=== PATIENT | female | born 1985 | race Caucasian/White ===

== ENCOUNTER → 2021-04-01 07:55 | Outpatient (CLI) | payer OTHER, MEDICAID, SELFPAY ==
[2021-04-01 20:45] LABS: COVID19 - ORCAS (NP or Nasal) Negative (Negative)
== END ==
PROVIDERS: Visit Provider Physician Assistant
DX: Z20.822 Contact with and (suspected) exposure to COVID-19 (principal)
CPT/HCPCS: C9803; U0003

== ENCOUNTER → 2022-04-20 14:13 | Outpatient (CLI) | payer OTHER, MEDICAID, SELFPAY | PROVIDERS: PCP Physician Assistant; Visit Provider Physician Assistant | DX: R35.0 Frequency of micturition (principal); R39.15 Urgency of urination | CPT/HCPCS: 81002; 81025; 87086 ==

== ENCOUNTER 2022-08-01 02:12 | Emergency (ER) | payer OTHER, MEDICAID, SELFPAY ==
[2022-08-01] VITALS (10 sets, daily range): BP systolic 113–126; BP diastolic 67–85; PULSE 94–122; TEMP 36.9; O2SAT 96–100
--- NOTE | 2022-08-01 03:06 | ED_ITS ---
HPI - Headache General Chief Complaint: Headache Stated Complaint: Headache/body aches/18 weeks Time Seen by Provider: 08/01/22 02:23 Mode of arrival: Ambulatory History of Present Illness HPI Narrative: 37-year-old female former smoker without chronic medical history is a at 18 weeks and presents with headache, body aches, fatigue and fever for the past few days. She states that she started getting ill over the course of the weekend and had symptoms that were very nonspecific but knew that she was beginning to fight something. She is had increasing levels of fatigue and joint pain and has developed a generalized headache over the past few days. She admittedly has had a poor appetite and has not been eating and drinking as much. She denies any neck pain. She states that when her headache becomes significantly intense she does get some blurring of vision but this is not persistent. She denies any double vision, facial numbness, tingling, weakness. As stated she has no neck pain. She is no chest pain, shortness of breath or cough. She denies any abdominal pain and has had no vaginal bleeding, discharge or leakage of fluid. She was seen and evaluated at an outside facility yesterday and had a negative respiratory swab, reassuring lab work and was given IV fluids and diagnosed with mild dehydration and viral syndrome. She denies dysuria but states she has had frequency and urgency which maybe a bit worse than normal but states that she has frequent urination for the majority of her Related Data Previous Rx's Medication Instructions Recorded cefpodoxime 200 mg tablet 200 mg PO BID 10 days #20 tabs 08/01/22 metoclopramide HCl 10 mg tablet 10 mg PO Q6H PRN nausea and 08/01/22 vomiting #20 tabs Allergies Allergy/AdvReac Type Severity Reaction Status Date / Time No Known Drug Allergies Allergy Verified 05/14/22 15:10 Review of Systems Review of Systems Narrative: GENERAL: Denies chills, fatigue, malaise, fever, sweats. HEENT: Denies sinus pain, ear pain, sore throat, difficulty swallowing, dizziness. RESPIRATORY: Denies dyspnea, cough, wheezing, hemoptysis, sputum. CARDIOVASCULAR: Denies chest pain, palpitations, orthopnea, edema, GASTROINTESTINAL: Denies nausea, vomiting, abdominal pain, diarrhea, constipation, melena. : Denies dysuria, frequency, incontinence, hematuria, urinary retention. MUSCULOSKELETAL: denies weakness, joint pain, or bony pain SKIN: Denies rash, skin lesions, or other NEUROLOGIC: Denies weakness, headache, numbness, change in speech, confusion, seizures, incoordination. PSYCHIATRIC: No concerning psychosocial issues. 12 point review of systems is negative except for those stated above Patient History Social History Smoking Status: Former smoker Smoking Status: Former smoker alcohol intake frequency: 0-2 drinks per day Exam Narrative Exam Narrative: GENERAL: [37] year old patient appears stated age. Well-developed patient, in mild distress. Sitting in a dark room HEAD: Atraumatic. Normocephalic. EYES: Pupils equal round and reactive. Extraocular motions intact. No scleral icterus. No injection or drainage. ENT: Nose without bleeding, purulent drainage. Throat without erythema, tonsillar hypertrophy or exudate. Airway patent. NECK: Trachea midline. Non tender, no meningeal signs, negative Brudzinski's, negative Kernig's CARDIOVASCULAR: Tachycardic and regular rhythm without murmurs, gallops, or rubs. RESPIRATORY: Clear to auscultation. Breath sounds equal bilaterally. No wheezes, rales, or rhonchi. GASTROINTESTINAL: Abdomen nontender, gravid EXTREMITIES: No edema or joint tenderness. BACK: Nontender without deformity or crepitance. No flank tenderness. NEURO: AOx3. SKIN: No rash or erythema of visible areas Initial Vital Signs Initial Vital Signs: Vital Signs Pulse Rate 119 H 08/01/22 02:34 Pulse Oximetry 98 08/01/22 02:34 Course Orders Ordered: Discontinued Medications Sodium Chloride (Normal Saline 0.9%) 1,000 mls @ 1,000 mls/hr IV BOLUS ONE Stop: 08/01/22 03:48 Last Infusion: 08/01/22 05:00 Dose: 0 mls/hr Documented By: Admin: 08/01/22 03:35 Dose: 1,000 mls/hr Documented By: ASHLEIGH Acetaminophen (Ofirmev) 1,000 mg in 100 mls @ 400 mls/hr IV NOW ONE Stop: 08/01/22 03:32 Last Infusion: 08/01/22 04:11 Dose: 0 mls/hr Documented By: Admin: 08/01/22 03:37 Dose: 400 mls/hr Documented By: ASHLEIGH Ceftriaxone Sodium 2,000 mg/ (Sodium Chloride) 100 mls @ 200 mls/hr IV NOW ONE Stop: 08/01/22 05:00 Last Infusion: 08/01/22 06:25 Dose: 0 mls/hr Documented By: Admin: 08/01/22 05:55 Dose: 200 mls/hr Documented By: ASHLEIGH Lactated Ringer's (Lactated Ringers) 1,000 mls @ 1,000 mls/hr IV BOLUS ONE Stop: 08/01/22 05:58 Last Infusion: 08/01/22 05:55 Dose: 0 mls/hr Documented By: Admin: 08/01/22 05:00 Dose: 1,000 mls/hr Documented By: ASHLEIGH Metoclopramide HCl (Metoclopramide 10 Mg/2 Ml Inj) 10 mg IV NOW ONE Stop: 08/01/22 03:54 Last Admin: 08/01/22 04:18 Dose: 10 mg Documented By: ASHLEIGH Reevaluation(s) Reevaluation #1: Patient feeling much better after 1st bag of fluids, heart rate from the 120s down to the low 100s, 2nd bag hung along with antibiotics MDM - Headache Lab Data 08/01/22 02:50 08/01/22 02:50 Labs: Lab Results 08/01/22 08/01/22 08/01/22 Range/Units 02:50 02:50 02:50 WBC 4.3 L (4.5-11.0) X10^3/uL RBC 3.75 L (4.0-5.2) X10^6/uL Hgb 11.7 L (12.0-16.0) g/dL Hct 33.6 L (36-46) % MCV 89.7 (80-100) fL MCH 31.1 (26-34) PG MCHC 34.7 (30-36) % RDW 12.7 (11.6-14.8) % Plt Count 132 L (150-400) X10^3/uL Neut % (Auto) 78.0 H (50-75) % Lymph % (Auto) 18.2 L (25-40) % [place] % (Auto) 3.2 (3-14) % Eos % (Auto) 0.0 L (2-4) % Baso % (Auto) 0.6 (0-2) % Neut # (Auto) 3300 (5310-4915) /uL Lymph # (Auto) 800 L (9252-0678) /uL [place] # (Auto) 100 (0-900) /uL Eos # (Auto) 0 (0-450) /uL Baso # (Auto) 0 (0-100) /uL Sodium 130 L (137-145) mmol/L Potassium 3.5 (3.4-5.1) mmol/L Chloride 101 (98-107) mmol/L Carbon Dioxide 21 L (22-32) mmol/L BUN 3 L (7-17) mg/dL Creatinine 0.42 L (0.52-1.04) mg/dL Estimated GFR > 60 (>60) mL/min BUN/Creatinine Ratio 7.1 (6-22) Glucose 102 H (70-100) mg/dL Uric Acid 3.2 (2.5-6.2) mg/dL Calcium 8.4 (8.4-10.2) mg/dL Total Bilirubin 1.1 (0.2-1.3) mg/dL AST 61 H (14-36) IU/L ALT 45 H (<35) IU/L Alkaline Phosphatase 114 (38-126) U/L Lactate Dehydrogenase 336 H (120-246) U/L Total Protein 6.9 (6.3-8.2) g/dL Albumin 3.7 (3.5-5.0) g/dL Globulin 3.2 (1.7-4.1) g/dL Albumin/Globulin Ratio 1.2 (1.0-2.8) Urine RBC (0-5/HPF) Urine WBC (0-5/HPF) Ur Squamous Epith Cells (0-5/HPF) Urine Bacteria (None) SARS-CoV-2 (PCR) (Negative) Influenza A (RT-PCR) (NEGATIVE) Influenza B (RT-PCR) (NEGATIVE) RSV (PCR) (Negative) 08/01/22 08/01/22 Range/Units 03:19 04:56 WBC (4.5-11.0) X10^3/uL RBC (4.0-5.2) X10^6/uL Hgb (12.0-16.0) g/dL Hct (36-46) % MCV (80-100) fL MCH (26-34) PG MCHC (30-36) % RDW (11.6-14.8) % Plt Count (150-400) X10^3/uL Neut % (Auto) (50-75) % Lymph % (Auto) (25-40) % [place] % (Auto) (3-14) % Eos % (Auto) (2-4) % Baso % (Auto) (0-2) % Neut # (Auto) (2364-6326) /uL Lymph # (Auto) (9432-5972) /uL [place] # (Auto) (0-900) /uL Eos # (Auto) (0-450) /uL Baso # (Auto) (0-100) /uL Sodium (137-145) mmol/L Potassium (3.4-5.1) mmol/L Chloride (98-107) mmol/L Carbon Dioxide (22-32) mmol/L BUN (7-17) mg/dL Creatinine (0.52-1.04) mg/dL Estimated GFR (>60) mL/min BUN/Creatinine Ratio (6-22) Glucose (70-100) mg/dL Uric Acid (2.5-6.2) mg/dL Calcium (8.4-10.2) mg/dL Total Bilirubin (0.2-1.3) mg/dL AST (14-36) IU/L ALT (<35) IU/L Alkaline Phosphatase (38-126) U/L Lactate Dehydrogenase (120-246) U/L Total Protein (6.3-8.2) g/dL Albumin (3.5-5.0) g/dL Globulin (1.7-4.1) g/dL Albumin/Globulin Ratio (1.0-2.8) Urine RBC 0-1/hpf (0-5/HPF) Urine WBC 5-10/hpf H (0-5/HPF) Ur Squamous Epith Cells 1-5 /hpf (0-5/HPF) Urine Bacteria Moderate (10-30) H (None) SARS-CoV-2 (PCR) Negative (Negative) Influenza A (RT-PCR) Flu a negative (NEGATIVE) Influenza B (RT-PCR) Flu b negative (NEGATIVE) RSV (PCR) Negative (Negative) Urine Dip Bedside Urine Glucose Negative Bedside Urine Bilirubin - Negative Bedside Urine Ketone +++ 80 Urine Specific [place] 1.015 Bedside Urine Occult Blood - Negative Bedside Urine pH 6.0 Bedside Urine Protein +/- 15 Bedside Urine Urobilinogen 1+ 2mg Bedside Urine Nitrite - Negative Bedside Urine Leukocytes + 70 Esterase MDM Narrative Medical decision making narrative: CC: 37-year-old female with fever, body aches, myalgias, headache Complicating co-morbidities: Data collected from: Patient Medical records reviewed: Prior notes reviewed in our EMR Differential considered, but not limited to: Viral syndrome, UTI/pyelonephritis, versus meningitis versus preeclampsia versus other Exam documented above, pertinent findings include: Intact neurologic exam, no meningeal signs, initially tachycardic but improved, no labored breathing, abdomen nontender Lab Test results independently reviewed as above. Pertinent findings: No significant leukocytosis, relative left shift, no significant electrolyte abnormality or renal function abnormality, LFTs slightly elevated at 61 and 45 respectively Imaging studies independently reviewed: Bedside point of care ultrasound demonstrates motion, heart tones within normal range Treatments: Fluids, antibiotics, Tylenol, Reglan Consultation: Discussed with local OB, ([facility]). Dicussed slight elevated LFTs and subtle drop in platelets, no indication to pursue HELPP per OB. Re-evaluations: Significant improvement, patient ambulatory in the department, headache significantly improved, heart rate down to the 90s Discussion: Multiple diagnoses considered as noted above, patient has had significant improvement with above-stated therapies. Urine with WBCs and leuk esterase along with frequency and urgency consistent with UTI, low back pain also suggestive upper. Respiratory panel unremarkable for flu and COVID. Labs otherwise largely unremarkable. Patient with significant improvement, no meningeal signs. Disposition: see below, along with detailed discharge instructions that have been reviewed with patient as well as indications for ED re-evaluation and additional outpatient follow up Discharge Plan Departure Patient Disposition: Home Clinical Impression: Pyelonephritis Instructions: DI for Urinary Tract Infection (UTI) Activity Restrictions/Additional Instructions: *You have been diagnosed with [pyelonephritis. As we discussed your history and physical exam are reassuring, labs are suggestive of urinary tract infection and given fever, nausea and back pain would suggest an upper tract infection called pyelonephritis. There is no indication to pursue meningitis as a diagnosis, respiratory swabs for flu and COVID are negative.] *What to do: *Please continue to take your regular medications as directed. [ x] New medication prescriptions sent to your pharmacy: [[facility] ] [ ] New medication written as a paper prescription [ ] No new medications given *Please follow up with your primary care provider in 2-3 days, call for an appointment. Let them know you were seen in the Emergency Department and that we ask that you be seen in follow up. We will electronically transmit a record of today's note if your PCP is in our system *If you do not have a primary care provider please contact the [facility] Resource line at [phone]. They will ask some questions about your medical history and help get you set up with a doctor in the community. *Return to Emergency Department if you should have any new, worsening or concerning symptoms, such as [fever greater than 101 F, shaking chills, worsening pain, persistent vomiting or other bothersome symptoms] Prescriptions: New cefpodoxime 200 mg tablet 200 mg PO BID 10 Days Qty: 20 0RF Rx Instructions: must administer with a meal/food metoclopramide HCl 10 mg tablet 10 mg PO Q6H PRN (Reason: nausea and vomiting) Qty: 20 0RF Referrals: Ana Medellin PA-C [Primary Care Provider] - Stand Alone Forms: Patient Portal/API
[2022-08-01 03:09] LABS: Add Manual Diff / Slide Review NO; Basophils Absolute Auto 0 /uL (0-100); Basophils Percent Auto 0.6 % (0-2); Eosinophils Absolute Auto 0 /uL (0-450); Hematocrit 33.6 % (36-46); Hemoglobin 11.7 g/dL (12.0-16.0); Lymphocytes Absolute Auto 800 /uL (1100-4500); Lymphocytes Percent Auto 18.2 % (25-40); Mean Corpuscular HGB Conc 34.7 % (30-36); Mean Corpuscular Hemoglobin 31.1 PG (26-34); Mean Corpuscular Volume 89.7 fL (80-100); Monocytes Absolute Auto 100 /uL (0-900); Monocytes Percent Auto 3.2 % (3-14); Neutrophils Absolute Auto 3300 /uL (1500-7000); Platelet Count 132 X10^3/uL (150-400); Red Blood Cell Count 3.75 X10^6/uL (4.0-5.2); Red Cell Distribution Width 12.7 % (11.6-14.8); White Blood Cell Count 4.3 X10^3/uL (4.5-11.0)
[2022-08-01 03:21] LABS: Alanine Aminotransferase 45 IU/L (<35); Albumin 3.7 g/dL (3.5-5.0); Albumin Globulin Ratio 1.2 (1.0-2.8); Alkaline Phosphatase 114 U/L (38-126); Aspartate Aminotransferase 61 IU/L (14-36); BUN Creatinine Ratio 7.1 (6-22); Bilirubin Total 1.1 mg/dL (0.2-1.3); Blood Urea Nitrogen 3 mg/dL (7-17); Calcium 8.4 mg/dL (8.4-10.2); Carbon Dioxide 21 mmol/L (22-32); Chloride 101 mmol/L (98-107); Estimated Glomerular Filt Rate > 60 mL/min (>60); Globulin 3.2 g/dL (1.7-4.1); Glucose 102 mg/dL (70-100); HEMOLYSIS < 15 (0-50); Potassium 3.5 mmol/L (3.4-5.1); Sodium 130 mmol/L (137-145); Total Protein 6.9 g/dL (6.3-8.2)
[2022-08-01] MEDS: SODIUM CHLORIDE 0.9% 1,000 ML 1000 ML IV (03:35)
[2022-08-01] MEDS: ACETAMINOPHEN IV 1,000 MG/100 ML VIAL 400 MG IV (03:37)
[2022-08-01 04:12] LABS: Influenza A - CEPHEID Flu A NEGATIVE (NEGATIVE); Influenza B - CEPHEID Flu B NEGATIVE (NEGATIVE); Respiratory Syncytial Virus Negative (Negative)
[2022-08-01] MEDS: METOCLOPRAMIDE 10 MG/2 ML INJ IV (04:18)
[2022-08-01 04:23] LABS: COVID-19 CEPHEID 4-PLEX PCR Negative (Negative)
[2022-08-01] MEDS: LACTATED RINGERS 1,000 ML 1000 ML IV (05:00)
[2022-08-01 05:04] LABS: WBC Urine 5-10/HPF (0-5/HPF)
[2022-08-01 05:05] LABS: Bacteria Urine Moderate (10-30); RBC Urine 0-1/HPF (0-5/HPF); Squamous Epithelial Cell Urine 1-5 /HPF (0-5/HPF)
[2022-08-01] MEDS: cefTRIAXone 2,000 MG in SODIUM CHLORIDE 0.9% 100 ML 200 MG IV (05:55)
[2022-08-01 05:59] LABS: Lactate Dehydrogenase 336 U/L (120-246); Uric Acid 3.2 mg/dL (2.5-6.2)
== END 2022-08-01 07:00 | disposition home or self-care (01) ==
PROVIDERS: Emergency Provider Emergency Medicine; PCP Physician Assistant
DX: N12 Tubulo-interstitial nephritis, not specified as acute or chronic (principal); Z20.822 Contact with and (suspected) exposure to COVID-19; Z3A.18 18 weeks gestation of pregnancy
CPT/HCPCS: 0241U; 36415; 80053; 81003; 81015; 83615; 84550; 85025; 87040; 87086; 93005; 93010; 96361; 96365; 96367; 96375; 99284; J0131; J0696; J2765

== ENCOUNTER → 2022-08-18 11:50 | Outpatient (CLI) | payer OTHER, MEDICAID, SELFPAY | PROVIDERS: PCP Physician Assistant; Visit Provider Physician Assistant | DX: Z87.440 Personal history of urinary (tract) infections (principal) | CPT/HCPCS: 81002; 87086 ==

== ENCOUNTER → 2024-07-09 11:25 | Outpatient (CLI) | payer OTHER, SELFPAY | PROVIDERS: PCP Physician Assistant; Visit Provider Physician Assistant | DX: Z87.440 Personal history of urinary (tract) infections (principal) | CPT/HCPCS: 87077; 87086; 87186 ==

== ENCOUNTER 2025-03-25 23:37 | Emergency (ER) | payer OTHER, SELFPAY ==
--- NOTE | 2025-03-25 23:39 | ED.GENADULT ---
HPI - General Adult <Melanie Conner DO - Last Filed: 03/27/25 07:16> General Chief complaint: Psychiatric Symptoms Stated complaint: Alcohol withdraw Time Seen by Provider: 03/25/25 23:39 Source: patient, EMS, RN notes reviewed and old records reviewed Mode of arrival: EMS Limitations: no limitations History of Present Illness HPI narrative: 39-year-old female history of depression currently on sertraline who presents with complaint of alcohol intoxication and depression. Patient states she does have suicidal ideation but no plan or intent to act on it but frequently has these thoughts. She denies any homicidal ideation. She notes stressors including having 3 children under the age of 5[place]. He is currently taking sertraline but is currently taking an prescription left over from her mother as [facility] where she was receiving her medications closed and she has not had access. She does have a primary care but she has followed. Tonight she had about 1.5 L of wine, she notes she also had quite a bit of wine on Tuesday. She states she typically drinks through Tuesday a bottle of wine on the weekends but does not drink the rest of the week. She denies tobacco, denies any marijuana or recreational drugs. She lives on [facility]. Related Data Previous Rx's ?Medication ?Instructions ?Recorded metoclopramide HCl 10 mg tablet 10 mg PO Q6H PRN nausea and 08/01/22 vomiting #20 tabs Allergies Allergy/AdvReac Type Severity Reaction Status Date / Time No Known Drug Allergies Allergy Verified 03/26/25 00:33 Review of Systems <Melanie Conner DO - Last Filed: 03/27/25 07:16> Review of Systems ROS Unobtainable: All systems reviewed & are unremarkable except as noted in HPI and below Patient History <Melanie Conner DO - Last Filed: 03/27/25 07:16> Social History Smoking Status: Current some day smoker alcohol intake frequency: 0-2 drinks per day Exam <Melanie Conner DO - Last Filed: 03/27/25 07:16> Narrative Exam Narrative: GENERAL: Alert and oriented x three, female in mild distress, patient is tearful, cooperative HEENT: Head normocephalic, atraumatic, EOMI, pupils reactive, face symmetric, moist mucous membranes NECK: Supple, full range of motion CARDIOVASCULAR: Regular rate and rhythm without murmurs, rubs or gallops. RESPIRATORY: Breath sounds equal bilaterally, no wheezes rales or rhonchi. ABDOMEN: Soft, nontender. Normoactive bowel sounds all 4 quadrants. No guarding or rebound, rigidity, no mass : No CVA tenderness EXTREMITIES: Normal range of motion, no clubbing or edema. Neurovascularly intact NEUROLOGICAL: Cranial nerves II through XII grossly intact. Moving all extremities SKIN: Warm, dry, no petechiae, no rashes or lesions. PSYCH: Depression, suicidal ideation denies intent, no homicidal ideation, no hallucinations, no paranoia Initial Vital Signs Initial Vital Signs: Vital Signs Pulse Rate 89 03/25/25 23:48 Pulse Oximetry 99 03/25/25 23:48 <Nimesh Vo MD - Last Filed: 03/26/25 12:17> Initial Vital Signs Initial Vital Signs: Vital Signs Pulse Rate 89 03/25/25 23:48 Pulse Oximetry 99 03/25/25 23:48 Course <Melanie Conner DO - Last Filed: 03/27/25 07:16> Orders Ordered: Discontinued Medications Phenobarbital (Phenobarbital 65 Mg/Ml Vial) 130 mg IV NOW ONE Stop: 03/26/25 04:24 Last Admin: 03/26/25 04:31 Dose: 130 mg Documented By: LS Vital Signs Vital signs: Vital Signs - 8 hr 03/26/25 04:30 03/26/25 04:30 03/26/25 04:44 Temperature Pulse Rate 77 Respiratory Rate Blood Pressure 137/100 H 139/102 H Pulse Oximetry 98 Oxygen Delivery Method 03/26/25 04:44 03/26/25 05:00 03/26/25 05:00 Temperature Pulse Rate 67 63 Respiratory Rate Blood Pressure 140/92 H Pulse Oximetry 97 97 Oxygen Delivery Method Room Air 03/26/25 09:59 Temperature 98.6 F Pulse Rate 65 Respiratory Rate 16 Blood Pressure 142/81 H Pulse Oximetry 95 Oxygen Delivery Method Room Air <Nimesh Vo MD - Last Filed: 03/26/25 12:17> Orders Ordered: Discontinued Medications Phenobarbital (Phenobarbital 65 Mg/Ml Vial) 130 mg IV NOW ONE Stop: 03/26/25 04:24 Last Admin: 03/26/25 04:31 Dose: 130 mg Documented By: ELIO Reevaluation(s) Reevaluation #1: Patient has been seen by social work and voluntary psychiatric admission was arranged. Patient will be transferred to [facility], accepting provider is Jagdeep Vital Signs Vital signs: Vital Signs - 8 hr 03/26/25 04:30 03/26/25 04:30 03/26/25 04:44 Temperature Pulse Rate 77 Respiratory Rate Blood Pressure 137/100 H 139/102 H Pulse Oximetry 98 Oxygen Delivery Method 03/26/25 04:44 03/26/25 05:00 03/26/25 05:00 Temperature Pulse Rate 67 63 Respiratory Rate Blood Pressure 140/92 H Pulse Oximetry 97 97 Oxygen Delivery Method Room Air 03/26/25 09:59 Temperature 98.6 F Pulse Rate 65 Respiratory Rate 16 Blood Pressure 142/81 H Pulse Oximetry 95 Oxygen Delivery Method Room Air Medical Decision Making <Melanie Conner, - Last Filed: 03/27/25 07:16> Lab Data 03/26/25 00:15 03/26/25 00:15 Labs: Lab Results 03/26/25 03/26/25 Range/Units 00:15 01:36 WBC 6.8 (4.5-11.0) X10^3/uL RBC 3.93 L (4.0-5.2) X10^6/uL Hgb 12.5 (12.0-16.0) g/dL Hct 36.8 (36-46) % MCV 93.5 (80-100) fL MCH 31.9 (26-34) PG MCHC 34.1 (30-36) % RDW 13.8 (11.6-14.8) % Plt Count 311 (150-400) X10^3/uL Neut % (Auto) 87.0 H (50-75) % Lymph % (Auto) 11.3 L (25-40) % [place] % (Auto) 1.1 L (3-14) % Eos % (Auto) 0.1 L (2-4) % Baso % (Auto) 0.5 (0-2) % Neut # (Auto) 5900 (7048-4166) /uL Lymph # (Auto) 800 L (4113-4066) /uL [place] # (Auto) 100 (0-900) /uL Eos # (Auto) 0 (0-450) /uL Baso # (Auto) 0 (0-100) /uL Sodium 143 (137-145) mmol/L Potassium 3.9 (3.4-5.1) mmol/L Chloride 106 (98-107) mmol/L Carbon Dioxide 26 (22-32) mmol/L BUN 16 (7-17) mg/dL Creatinine 0.56 (0.52-1.04) mg/dL Estimated GFR > 60 (>60) mL/min BUN/Creatinine Ratio 28.6 H (6-22) Glucose 118 H (70-99) mg/dL Calcium 8.8 (8.4-10.2) mg/dL Total Bilirubin 0.3 (0.2-1.3) mg/dL AST 23 (14-36) IU/L ALT 11 (<35) IU/L Alkaline Phosphatase 48 (38-126) U/L Total Protein 7.5 (6.3-8.2) g/dL Albumin 4.6 (3.5-5.0) g/dL Globulin 2.9 (1.7-4.1) g/dL Albumin/Globulin Ratio 1.6 (1.0-2.8) Lipase 58 (23-300) U/L TSH 0.20 L (0.47-4.68) uIU/mL Free T4 1.09 (0.78-2.19) ng/dL Salicylates < 1.0 (<20) mg/dL U Opiates 300ng/mL cut Negative (Negative) Ur Oxycodone Screen Negative (Negative) Urine Methadone Screen Negative (Negative) Acetaminophen < 10 (10-30) ug/mL Ur Barbiturates Screen Negative (Negative) U Tricyclic Antidepress Negative (Negative) Ur Phencyclidine Scrn Negative (Negative) Ur Amphetamines Screen Negative (Negative) U Methamphetamines Scrn Negative (Negative) Ur MDMA Scrn (Ecstasy) Negative (Negative) U Benzodiazepines Scrn Negative (Negative) Urine Cocaine Screen Negative (Negative) U Marijuana (THC) Screen Negative (Negative) Urine pH Normal (Normal) Urine Specific [place] Normal (Normal) Ethyl Alcohol 123 H (<10) mg/dL Ur Creatinine Normal (Normal) Point of Care Testing Test Results Negative Urine Dip Bedside Urine Glucose Negative Bedside Urine Bilirubin - Negative Bedside Urine Ketone - Negative Urine Specific [place] 1.015 Bedside Urine Occult Blood - Negative Bedside Urine pH 7.5 Bedside Urine Protein - Negative Bedside Urine Urobilinogen - Negative Bedside Urine Nitrite - Negative Bedside Urine Leukocytes - Negative Esterase Point of care testing: Point of Care Testing Test Results Negative Urine Dip Bedside Urine Glucose Negative Bedside Urine Bilirubin - Negative Bedside Urine Ketone - Negative Urine Specific [place] 1.015 Bedside Urine Occult Blood - Negative Bedside Urine pH 7.5 Bedside Urine Protein - Negative Bedside Urine Urobilinogen - Negative Bedside Urine Nitrite - Negative Bedside Urine Leukocytes - Negative Esterase MDM Narrative Medical decision making narrative: 39-year-old female presents with a complaint of depression and recent alcohol ingestion. Patient has suicidal ideation but denies any intent. She notes she maybe interested in inpatient psychiatric placement but is currently not sure. Labs show white count of 6.8 hemoglobin of 12.5 platelets of 311, chemistries are appropriate glucose is 118 LFTs are normal TSH is 0.02 with a free T4 of 1.09, acetaminophen and salicylate are negative, ETOH is 123. UDS is negative. Point of care urine is negative. Urine preg is negative. Patient had dose of phenobarb Patient has a medically cleared. Plan for [employer] in the morning. 0223 spoke with the patient she is interested in meeting with the [employer] this morning. 0426: Patient notes she is feeling very anxious, she feels like she is having little bit of alcohol withdrawal she does note she gets jittery during the week when she does not drink. Will give a dose of phenobarbital. <Nimesh Vo MD - Last Filed: 03/26/25 12:17> Lab Data Labs: Lab Results 03/26/25 03/26/25 Range/Units 00:15 01:36 WBC 6.8 (4.5-11.0) X10^3/uL RBC 3.93 L (4.0-5.2) X10^6/uL Hgb 12.5 (12.0-16.0) g/dL Hct 36.8 (36-46) % MCV 93.5 (80-100) fL MCH 31.9 (26-34) PG MCHC 34.1 (30-36) % RDW 13.8 (11.6-14.8) % Plt Count 311 (150-400) X10^3/uL Neut % (Auto) 87.0 H (50-75) % Lymph % (Auto) 11.3 L (25-40) % [place] % (Auto) 1.1 L (3-14) % Eos % (Auto) 0.1 L (2-4) % Baso % (Auto) 0.5 (0-2) % Neut # (Auto) 5900 (6627-4352) /uL Lymph # (Auto) 800 L (2247-8736) /uL [place] # (Auto) 100 (0-900) /uL Eos # (Auto) 0 (0-450) /uL Baso # (Auto) 0 (0-100) /uL Sodium 143 (137-145) mmol/L Potassium 3.9 (3.4-5.1) mmol/L Chloride 106 (98-107) mmol/L Carbon Dioxide 26 (22-32) mmol/L BUN 16 (7-17) mg/dL Creatinine 0.56 (0.52-1.04) mg/dL Estimated GFR > 60 (>60) mL/min BUN/Creatinine Ratio 28.6 H (6-22) Glucose 118 H (70-99) mg/dL Calcium 8.8 (8.4-10.2) mg/dL Total Bilirubin 0.3 (0.2-1.3) mg/dL AST 23 (14-36) IU/L ALT 11 (<35) IU/L Alkaline Phosphatase 48 (38-126) U/L Total Protein 7.5 (6.3-8.2) g/dL Albumin 4.6 (3.5-5.0) g/dL Globulin 2.9 (1.7-4.1) g/dL Albumin/Globulin Ratio 1.6 (1.0-2.8) Lipase 58 (23-300) U/L TSH 0.20 L (0.47-4.68) uIU/mL Free T4 1.09 (0.78-2.19) ng/dL Salicylates < 1.0 (<20) mg/dL U Opiates 300ng/mL cut Negative (Negative) Ur Oxycodone Screen Negative (Negative) Urine Methadone Screen Negative (Negative) Acetaminophen < 10 (10-30) ug/mL Ur Barbiturates Screen Negative (Negative) U Tricyclic Antidepress Negative (Negative) Ur Phencyclidine Scrn Negative (Negative) Ur Amphetamines Screen Negative (Negative) U Methamphetamines Scrn Negative (Negative) Ur MDMA Scrn (Ecstasy) Negative (Negative) U Benzodiazepines Scrn Negative (Negative) Urine Cocaine Screen Negative (Negative) U Marijuana (THC) Screen Negative (Negative) Urine pH Normal (Normal) Urine Specific [place] Normal (Normal) Ethyl Alcohol 123 H (<10) mg/dL Ur Creatinine Normal (Normal) Point of Care Testing Test Results Negative Urine Dip Bedside Urine Glucose Negative Bedside Urine Bilirubin - Negative Bedside Urine Ketone - Negative Urine Specific [place] 1.015 Bedside Urine Occult Blood - Negative Bedside Urine pH 7.5 Bedside Urine Protein - Negative Bedside Urine Urobilinogen - Negative Bedside Urine Nitrite - Negative Bedside Urine Leukocytes - Negative Esterase Point of care testing: Point of Care Testing Test Results Negative Urine Dip Bedside Urine Glucose Negative Bedside Urine Bilirubin - Negative Bedside Urine Ketone - Negative Urine Specific [place] 1.015 Bedside Urine Occult Blood - Negative Bedside Urine pH 7.5 Bedside Urine Protein - Negative Bedside Urine Urobilinogen - Negative Bedside Urine Nitrite - Negative Bedside Urine Leukocytes - Negative Esterase Discharge Plan Departure Patient Disposition: Xfer Psychiatric Hosp Clinical Impression: Depression with suicidal ideation, Alcohol use Prescriptions: No Action metoclopramide HCl 10 mg tablet 10 mg PO Q6H PRN (Reason: nausea and vomiting) Qty: 20 0RF Referrals: Senia Aquino PA-C [Primary Care Provider, Medical]
[2025-03-25 23:48] VITALS: PULSE 89; O2SAT 99
[2025-03-25 23:50] VITALS: BP 164/119; PULSE 83; RESP 16; TEMP 36.8; O2SAT 99; BMI 20.7
[2025-03-26] VITALS (23 sets, daily range): BP systolic 104–157; BP diastolic 65–102; PULSE 60–91; RESP 16; TEMP 37–37.1; O2SAT 95–100
[2025-03-26 00:28] LABS: Add Manual Diff / Slide Review NO; Hematocrit 36.8 % (36-46); Hemoglobin 12.5 g/dL (12.0-16.0); Lymphocytes Absolute Auto 800 /uL (1100-4500); Mean Corpuscular HGB Conc 34.1 % (30-36); Mean Corpuscular Hemoglobin 31.9 PG (26-34); Mean Corpuscular Volume 93.5 fL (80-100); Platelet Count 311 X10^3/uL (150-400)
[2025-03-26 00:39] LABS: Acetaminophen < 10 ug/mL (10-30); Alanine Aminotransferase 11 IU/L (<35); Albumin 4.6 g/dL (3.5-5.0); Albumin Globulin Ratio 1.6 (1.0-2.8); Alkaline Phosphatase 48 U/L (38-126); Blood Urea Nitrogen 16 mg/dL (7-17); Calcium 8.8 mg/dL (8.4-10.2); Carbon Dioxide 26 mmol/L (22-32); Chloride 106 mmol/L (98-107); Estimated Glomerular Filt Rate > 60 mL/min (>60); Ethanol (ETOH) 123 mg/dL (<10); Globulin 2.9 g/dL (1.7-4.1); Glucose 118 mg/dL (70-99); HEMOLYSIS < 15 (0-50); Lipase 58 U/L (23-300); Potassium 3.9 mmol/L (3.4-5.1); Salicylate < 1.0 mg/dL (<20); Sodium 143 mmol/L (137-145); Total Protein 7.5 g/dL (6.3-8.2)
[2025-03-26 01:15] LABS: TSH w/ Reflex to FT4 0.20 uIU/mL (0.47-4.68)
[2025-03-26 01:43] LABS: UR Morphine/Opiate cutoff 300 Negative (Negative); Ur Specific Gravity Normal (Normal); Urine MDMA Negative (Negative); Urine Methamphetamines Negative (Negative); Urine Tetrahydrocannabinol Negative (Negative); Urine Tricyclic Antidepressant Negative (Negative)
[2025-03-26 01:44] LABS: Free T4, Direct Thyroxine 1.09 ng/dL (0.78-2.19)
--- NOTE | 2025-03-26 10:47 | CM.SWNOTE ---
ED RETAINING ROOM CUTTER Assessment Note: RETAINING ROOM CUTTER - Refrigeration Tech Assessment RETAINING ROOM CUTTER/Refrigeration Tech Assessment Time Spent with Patient Start date 03/26/25 Visit Start Time 09:25 End date 03/26/25 Visit End Time 09:45 Total time Care 20 minutes Management spent on patient visit-in minutes Mental Health Screening Include Onset, Duration, Intensity Presenting Problem Patient presented to the ED due to concerns of alcohol withdrawal and depression with suicidal ideation. 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 Patient tearfully explained how her had a brief stint in which he was not employed. When she saw that he stepped into her role of primary parent/home schooling children, it exacerbated her feelings of worthlessness and desolation. Patient does not feel safe with discharging home in this state. Patient Strengths Patient is communicative, exhibits self-awareness. Patient is supported by her , Eliud. Current Behavioral None currently. Previously seeing telehealth providers Health Provider(s) at [facility]. Include Facility, Provider, Ph. # Psych. Hx Mental Previous Rx of Sertraline, not currently prescribed. Health and Chemical Dependency Family Hx of None reported. Behavioral Abuse Psychiatric None reported. Hospitalizations ( date(s)/location) Psychosocial Patient is a 39yo female, resident of [facility] with information & her and three children. 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 Substance Abuse Screening Include Onset, Duration, Intensity Presenting Problem Patient states she drank approximately 1.5L of wine on 03/25/25. She states she typically drinks on the weekends alone, approximately 1 bottle of wine per weekend. Patient Strengths Patient recognizes this is a maladaptive coping skill due to her depression. History of None reported. Withdrawal? Seizures ? Legal Concerns Legal Matters - None reported. Outstanding Issues Mental Status Orientation (Person/ AOx3 Place/Time) Stated Mood Low Affect (Congruent Tearful, dysthymic, congruent with mood with Mood?) Thought Content - None reported, none identified during assessment. Specify/Describe Obsessions, Delusions, Hallucinations Thought Processes ( Logical, coherent. Logical-Coherent- Goal Directed- Detailed-Tangential- Circumstantial- Logical-Disorganized -Thought Blocking) Speech (Normal-Slow- Normal, soft Gundaaw-Ssxrw-Abpj- Loud-Pressured) Motor (Normal- Normal Zxjkulyku-Ixsb-Stnbt ) Insight (Good-Fair- Good Poor/Limited) Judgement (Good-Fair Good -Poor/Limited) Impulse Control ( Impaired Adequate-Impaired) Memory (Immediate- Intact Recent-Remote, Impaired-Intact) Concentration ( Intact Intact-Impaired) Attention (Intact- Intact Impaired) Behavior ( Appropriate Appropriate- Inappropriate) Additional Comment Patient is calm, cooperative and communicative during assessment. Risk Assessment Suicidal Ideation ( Yes Plan) Homicidal Ideation ( No Plan) Comment [place]-SUICIDE SEVERITY RATING SCALE 1) Have you wished you were or wished you could go to sleep and not wake up? YES 2) Have you actually had any thoughts of killing yourself? YES 3) Have you been thinking about how you might do this? NO 4) Have you had these thoughts and had some intention of acting on them? NO 5) Have you started to work out or worked out the details of how to kill yourself? Do you intend to carry out this plan? NO 6) Have you ever done anything, started to do anything, or prepared to do anything to end your life? NO If YES, ask: Was this within the past three months? N/A Intervention Intervention Reviewed chart and discussed with ED Provider pt's medical status and discharge needs. ED RETAINING ROOM CUTTER meets with patient. Patient endorses being in crisis, not feeling safe with discharge home in this state. Patient explains she recognizes she [place] help for her mental health. ED RETAINING ROOM CUTTER and patient discuss goals of care. Patient explains they are agreeable to receive inpatient behavioral health and [facility] hospitalization at this time. Will coordinate childcare with her . At this time, it is the opinion of this RETAINING ROOM CUTTER that patient would benefit from inpatient psychiatric hospitalization for depression with SI, alcohol use. RETAINING ROOM CUTTER informs ED provider, Dr. Vo, who indicates agreement. RETAINING ROOM CUTTER informs TIMMY Mckinley. Plan RA Plan Once patient is medically clear, ED staff will attempt to find inpatient placement for patient. VIRI Sneed
--- NOTE | 2025-03-26 14:16 | CM.SWNOTE ---
ED TILESETTER Note TILESETTER enters room to meet with patient to discuss dual dx inpatient options for treatment. Patient is open to all options. TILESETTER calls [facility], it is reported that they have beds and can review patient. TILESETTER faxes clinicals for review. [facility] at [facility] provider accepts patient for dual dx treatment, accepting provider is REYMUNDO Andrews. Patient is accepted at [address]. Patient can arrive at 1600 or after. RN-RN is [phone]. TILESETTER calls [facility] and schedules BLS for 1430. TILESETTER informs patient of this and she indicates agreement and understanding. TILESETTER discusses identifying supports for spouse as he cares for their children during this time, patient is able to identify some friends that could be of assistance. TILESETTER provides patient with outpatient [facility]AMIN and MH resources. Plan: patient to transfer to [facility] for dual dx treatment this afternoon via BLS. Nuris Brasher, EXTRUSION OPERATOR
== END 2025-03-26 14:59 ==
PROVIDERS: Emergency Provider Emergency Medicine; PCP Physician Assistant
DX: R45.851 Suicidal ideations (principal); F32.A Depression, unspecified; F10.129 Alcohol abuse with intoxication, unspecified; Y90.6 Blood alcohol level of 120-199 mg/100 ml
CPT/HCPCS: 36415; 80053; 80305; 80320; 80329; 81003; 81025; 83690; 84439; 84443; 85025; 96374; 99284; G0480; J2560